=== PATIENT | female | born 1975 | race Caucasian/White ===

== ENCOUNTER 2025-02-09 17:12 | Emergency (ER) | payer OTHER, SELFPAY ==
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
[2025-02-09 17:20] VITALS: BP 129/92; PULSE 88; RESP 18; TEMP 36.9; O2SAT 96; BMI 29.0
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
[2025-02-09 21:33] VITALS: BP 132/88; PULSE 73; RESP 16; O2SAT 96
[2025-02-09] MEDS: Lidocaine 4 % Patch ADH..PATCH 2 PATCH TRANSDERMA (21:36)
[2025-02-09 21:43] VITALS: BP 132/88; PULSE 73; RESP 16; TEMP 36.4; O2SAT 96
== END 2025-02-09 21:44 | disposition home or self-care (01) ==
PROVIDERS: Emergency Provider Emergency Medicine; PCP Student in an Organized Health Care Education/Training Program
DX: S13.4XXA Sprain of ligaments of cervical spine, initial encounter (principal); S16.1XXA Strain of muscle, fascia and tendon at neck level, initial encounter; M54.2 Cervicalgia; R51.9 Headache, unspecified; V43.52XA Car driver injured in collision with other type car in traffic accident, initial encounter; Y93.9 Activity, unspecified; Y92.410 Unspecified street and highway as the place of occurrence of the external cause; Y99.8 Other external cause status
CPT/HCPCS: 70450; 72125; 99284

== ENCOUNTER → 2025-02-09 17:24 | Outpatient (BNV) | payer SELFPAY | PROVIDERS: Visit Provider Radiology Diagnostic Radiology | DX: M54.2 Cervicalgia (principal); R51.9 Headache, unspecified; V89.2XXA Person injured in unspecified motor-vehicle accident, traffic, initial encounter | CPT/HCPCS: 70450; 72125 ==